=== PATIENT | female | born 1945 | race Caucasian/White ===

== ENCOUNTER 2016-08-20 21:38 | Emergency (ER) | payer MEDICARE, BC ==
[~2016-08-20 21:38] MED LIST: AMLODIPINE BESY10 MG PO; ANAFRANIL50 MG PO; DULCOLAX10 MG/SUPP PR; ENEMA133 M1 RC; HYDROCHLOROTH12.5 MG PO; KLONOPIN0.25 MG/TA PO; LIPITOR20 MG PO; LOMOTIL TABLET1 TAB PO; NORVASC10 MG PO; PHENERGAN SUPP25 MG PR; PHENERGAN25 MG PO; PROPRANOLOL HCL20 MG PO; RANITIDINE HCL150 M1 PO; SEROQUEL XR200 MG PO
[2016-08-20] MEDS ORDERED: ZANTAC PO (21:50)
[2016-08-20] MEDS ORDERED: KLONOPIN0.5 M3 PO (21:51)
[2016-08-20] MEDS ORDERED: ANTIDEPRESSANT (21:51)
== END 2016-08-20 22:43 | disposition home or self-care (01) ==
LOC: SED 21:38
DX: R21 Rash and other nonspecific skin eruption (principal); F32.9 Major depressive disorder, single episode, unspecified; E78.5 Hyperlipidemia, unspecified; J45.909 Unspecified asthma, uncomplicated; Z79.899 Other long term (current) drug therapy
CPT/HCPCS: 82947; 99283